=== PATIENT | male | born 1940 | race African-American/Black ===

== ENCOUNTER 2019-06-02 11:44 | Inpatient (IN) | payer MEDICAID, MEDICARE ==
[~2019-06-02] VITALS: Ht 185.4 cm; Wt 81.6 kg
[~2019-06-02 11:44] MED LIST: ATOR40TA70 PO; CITA10SO PO; CLOP75TA4 PO; CRAN400C PO; DOCU-150 PO; ERGO2000 PO; FAMO20TA8 PO; GABA-531 PO; INSU100I28 SQ; LISI40TA4 PO; MULT-1146 PO; POLY255P2 MT
[2019-06-02 12:53] LABS: BASOPHILS % 0.7 % (0.0-2.0); EOSINOPHILS % 4.3 % (0.0-5.0); HEMOGLOBIN. 12.7 g/dL (14.0-18.0); LYMPHOCYTES % 17.5 % (20.0-50.0); MEAN CORPUSCULAR HEMOGLOBIN 27.8 pg (28.0-32.0); MEAN CORPUSCULAR VOLUME 85.2 fL (80.0-94.0); MEAN PLATELET VOLUME 7.5 fl (7.4-10.4); MONOCYTES % 11.1 % (2.0-8.0); NEUTROPHILS % 66.4 % (40.0-76.0); PLATELET 388 x1000/uL (130-400); RED BLOOD CELL COUNT 4.58 mill/uL (4.7-6.1); RED CELL DISTRIBUTION WIDTH 13.6 % (11.6-14.6)
[2019-06-02 12:59] LABS: CHLORIDE 107 mEq/L (98-107)
[2019-06-02 13:00] LABS: INR 1.1; PROTHROMBIN TIME 10.9 sec (9.6-11.0)
[2019-06-02] MEDS ORDERED: SODIUM CHLORIDE 0.9% 500 ML IV ONE (13:38)
[2019-06-02 22:19] VITALS: BP 147/72
[2019-06-02] MEDS ORDERED: ONDANSETRON HCL 4MG/2ML INJ IV PRN (22:45)
[2019-06-02] MEDS ORDERED: CLONIDINE 0.1MG TABLET PO PRN (22:45)
[2019-06-02] MEDS ORDERED: ACETAMINOPHEN 325MG TABLET PO PRN (22:45)
[2019-06-02] MEDS ORDERED: ACETAMINOPHEN 650MG/20.3ML UDC GT PRN (22:45)
[2019-06-03] VITALS (7 sets, daily range): BP systolic 110–175; BP diastolic 61–78
[2019-06-03] MEDS: HYDROCODONE/ACETAMINOPHEN 5/325MG TABLET PO PRN ×2 (03:16→20:09)
[2019-06-03 06:54] LABS: CREATINE KINASE 102 IU/L (39-308)
[2019-06-03 06:56] LABS: CREATINE KINASE MB FRACTION < 1.0 ng/mL (0.5-3.6)
[2019-06-03] MEDS: ASPIRIN 81MG EC TABLET PO SCH (09:01)
[2019-06-03] MEDS: ENOXAPARIN 40MG/0.4ML SYR SUBCUT SCH (09:01)
[2019-06-03] MEDS: FERROUS SULFATE 325MG TABLET PO SCH (09:01)
[2019-06-03] MEDS: THIAMINE HCL 100MG TABLET PO SCH (09:01)
[2019-06-03 16:07] LABS: CREATINE KINASE 88 IU/L (39-308)
[2019-06-03 16:08] LABS: CREATINE KINASE MB FRACTION < 1.0 ng/mL (0.5-3.6)
[2019-06-03] MEDS: SODIUM CHLORIDE 0.9% 1,000 ML IV SCH ×2 (17:57→17:58)
[2019-06-03] MEDS: AMLODIPINE 5MG TABLET PO SCH (23:30)
[2019-06-04] VITALS: BP 94/52
[2019-06-04] MEDS ORDERED: CEFTRIAXONE 1 G PREMIX 50 ML IV NR
[2019-06-04 00:53] VITALS: BP 100/58
[2019-06-04 02:42] LABS: CLARITY URINE TURBID (CLEAR); COLOR URINE YELLOW (YELLOW); KETONES URINE TRACE (NEGATIVE); LEUKOCYTE ESTERASE URINE 3+ (NEGATIVE); NITRITE URINE NEGATIVE (NEGATIVE); OCCULT BLOOD URINE 2+ (NEGATIVE); PROTEIN URINE 1+ (NEGATIVE); SPECIFIC GRAVITY URINE 1.019 (1.005-1.030); UROBILINOGEN URINE 0.2 E.U./dL (0.2-1.0)
[2019-06-04 04:00] VITALS: BP 125/63
[2019-06-04 08:00] VITALS: BP 122/69
[2019-06-04] MEDS: ENOXAPARIN 40MG/0.4ML SYR SUBCUT SCH (09:27)
[2019-06-04] MEDS: ASPIRIN 81MG EC TABLET PO SCH (09:27)
[2019-06-04] MEDS: FERROUS SULFATE 325MG TABLET PO SCH (09:27)
[2019-06-04] MEDS: THIAMINE HCL 100MG TABLET PO SCH (09:27)
[2019-06-04] MEDS: AMLODIPINE 5MG TABLET PO SCH (09:27)
[2019-06-04] MEDS: SODIUM CHLORIDE 0.9% 1,000 ML IV SCH (09:28)
[2019-06-04] MEDS ORDERED: IPRATROPIUM/ALBUTEROL 0.5-3(2.5)MG/3ML NEB HHN PRN (12:45)
[2019-06-04 20:00] VITALS: BP 155/71
[2019-06-04] MEDS: CEFTRIAXONE 1 G PREMIX 50 ML IV SCH (20:07)
[2019-06-05] VITALS: BP 149/78
[2019-06-05 04:00] VITALS: BP 153/75
[2019-06-05 07:51] LABS: BASOPHILS % 0.6 % (0.0-2.0); EOSINOPHILS % 2.9 % (0.0-5.0); HEMATOCRIT. 37.6 % (42.0-52.0); HEMOGLOBIN. 12.4 g/dL (14.0-18.0); LYMPHOCYTES % 14.9 % (20.0-50.0); MEAN CORPUSCULAR VOLUME 85.3 fL (80.0-94.0); MEAN PLATELET VOLUME 7.5 fl (7.4-10.4); MONOCYTES % 9.6 % (2.0-8.0); PLATELET 410 x1000/uL (130-400); RED BLOOD CELL COUNT 4.41 mill/uL (4.7-6.1); RED CELL DISTRIBUTION WIDTH 13.7 % (11.6-14.6)
[2019-06-05 08:00] VITALS: BP 153/78
[2019-06-05 08:30] LABS: CHLORIDE 109 mEq/L (98-107)
[2019-06-05 08:44] LABS: PHOSPHORUS 2.3 mg/dL (2.5-4.9)
[2019-06-05] MEDS: FERROUS SULFATE 325MG TABLET PO SCH (09:31)
[2019-06-05] MEDS: THIAMINE HCL 100MG TABLET PO SCH (09:31)
[2019-06-05] MEDS: ENOXAPARIN 40MG/0.4ML SYR SUBCUT SCH (09:32)
[2019-06-05] MEDS: AMLODIPINE 5MG TABLET PO SCH (09:37)
[2019-06-05] MEDS: ASPIRIN 81MG EC TABLET PO SCH (09:53)
[2019-06-05 12:00] VITALS: BP 129/74
[2019-06-05 16:00] VITALS: BP 135/67
[2019-06-05] MEDS: SODIUM CHLORIDE 0.9% 1,000 ML IV SCH ×2 (17:18→19:49)
[2019-06-05 20:00] VITALS: BP 163/83
[2019-06-05] MEDS: CEFTRIAXONE 1 G PREMIX 50 ML IV SCH (20:36)
[2019-06-05] MEDS: BLOOD SUGAR DIAGNOSTIC STRIP TEST SCH (22:23)
[2019-06-05] MEDS: INSULIN LISPRO 100 UNITS/ML SUBCUT SCH (22:30)
[2019-06-05] MEDS ORDERED: DEXTROSE 50% WATER 50ML SYRINGE IV PRN (22:30)
[2019-06-06] VITALS: BP 153/80
[2019-06-06 04:00] VITALS: BP 144/68
[2019-06-06] MEDS: BLOOD SUGAR DIAGNOSTIC STRIP TEST SCH ×4 (05:39→21:30)
[2019-06-06] MEDS: INSULIN LISPRO 100 UNITS/ML SUBCUT SCH ×4 (05:57→21:30)
[2019-06-06 08:05] VITALS: BP 150/79
[2019-06-06] MEDS: THIAMINE HCL 100MG TABLET PO SCH (08:47)
[2019-06-06] MEDS: FERROUS SULFATE 325MG TABLET PO SCH (08:47)
[2019-06-06] MEDS: ASPIRIN 81MG EC TABLET PO SCH (08:47)
[2019-06-06] MEDS: AMLODIPINE 5MG TABLET PO SCH (08:47)
[2019-06-06] MEDS: ENOXAPARIN 40MG/0.4ML SYR SUBCUT SCH (08:47)
[2019-06-06] MEDS: SODIUM CHLORIDE 0.9% 1,000 ML IV SCH (11:45)
[2019-06-06 12:00] VITALS: BP 125/65
[2019-06-06 16:00] VITALS: BP 138/72
[2019-06-06 20:00] VITALS: BP 130/62
[2019-06-06] MEDS: CEFTRIAXONE 1 G PREMIX 50 ML IV SCH (21:10)
[2019-06-07] VITALS: BP 129/61
[2019-06-07 04:00] VITALS: BP 129/57
[2019-06-07] MEDS: SODIUM CHLORIDE 0.9% 1,000 ML IV SCH (05:32)
[2019-06-07] MEDS: INSULIN LISPRO 100 UNITS/ML SUBCUT SCH ×2 (06:22→12:40)
[2019-06-07] MEDS: BLOOD SUGAR DIAGNOSTIC STRIP TEST SCH ×2 (06:22→12:10)
[2019-06-07] MEDS: ENOXAPARIN 40MG/0.4ML SYR SUBCUT SCH (09:08)
[2019-06-07] MEDS: FERROUS SULFATE 325MG TABLET PO SCH (09:08)
[2019-06-07] MEDS: THIAMINE HCL 100MG TABLET PO SCH (09:08)
[2019-06-07] MEDS: AMLODIPINE 5MG TABLET PO SCH (09:08)
[2019-06-07] MEDS: ASPIRIN 81MG EC TABLET PO SCH (09:08)
[2019-06-07 11:48] VITALS: BP 143/72
[2019-06-07 15:01] VITALS: BP 143/72
[2019-06-07 17:19] LABS: CHLORIDE 107 mEq/L (98-107)
== END 2019-06-07 17:55 | DRG 871 ==
LOC: ER 11:44 → 8WST 15:10 → ENRESERV 20:51
PROVIDERS: ADMIT Internal Medicine Nephrology; ATTEND Internal Medicine Nephrology
DX: A41.9 Sepsis, unspecified organism (principal); N17.0 Acute kidney failure with tubular necrosis; E44.0 Moderate protein-calorie malnutrition; I69.354 Hemiplegia and hemiparesis following cerebral infarction affecting left non-dominant side; N39.0 Urinary tract infection, site not specified; I12.9 Hypertensive chronic kidney disease with stage 1 through stage 4 chronic kidney disease, or unspecified chronic kidney disease; E86.0 Dehydration; E11.22 Type 2 diabetes mellitus with diabetic chronic kidney disease; D63.8 Anemia in other chronic diseases classified elsewhere; E78.5 Hyperlipidemia, unspecified; I25.10 Atherosclerotic heart disease of native coronary artery without angina pectoris; R74.0 Nonspecific elevation of levels of transaminase and lactic acid dehydrogenase [LDH]; N18.9 Chronic kidney disease, unspecified; R62.7 Adult failure to thrive; Z87.891 Personal history of nicotine dependence; Z99.3 Dependence on wheelchair; Z68.23 Body mass index [BMI] 23.0-23.9, adult; Z79.4 Long term (current) use of insulin; Z79.899 Other long term (current) drug therapy
CPT/HCPCS: 36415; 71045; 80048; 82550; 82553; 82962; 83605; 83735; 84100; 84134; 84145; 84484; 93005; 93306; 96360; 97110; 97162; 97166; 97530; 99285; A6261; J0696; J1650; J1815; J7030; J7050

== ENCOUNTER 2020-02-18 14:17 | Inpatient (IN) | payer MEDICARE, MEDICAID ==
[~2020-02-18] VITALS: Ht 182.9 cm; Wt 70.9 kg
[2020-02-18] MEDS ORDERED: SODIUM CHLORIDE 0.9% 1,000 ML IV ONE ×2 (14:50→14:57)
[2020-02-18] MEDS ORDERED: PIPERACILLIN/TAZ 3.375G PREMIX 50 ML IV ONE (15:00)
[2020-02-18] MEDS ORDERED: VANCOMYCIN 1 G PREMIX 200 ML IV ONE ×2 (15:00→15:15)
[2020-02-18 16:39] LABS: INR 1.1; PROTHROMBIN TIME 11.4 sec (9.6-11.0)
[2020-02-18 16:46] LABS: HEMOGLOBIN. 14.7 g/dL (14.0-18.0); MEAN CORPUSCULAR HEMOGLOBIN 27.7 pg (28.0-32.0); MEAN CORPUSCULAR VOLUME 82.9 fL (80.0-94.0); MEAN PLATELET VOLUME 8.6 fl (7.4-10.4); PLATELET 290 x1000/uL (130-400); RED BLOOD CELL COUNT 5.31 mill/uL (4.7-6.1); RED CELL DISTRIBUTION WIDTH 13.5 % (11.6-14.6)
[2020-02-18 17:03] LABS: CLARITY URINE CLOUDY (CLEAR); COLOR URINE DK YELLOW (YELLOW); KETONES URINE NEGATIVE (NEGATIVE); LEUKOCYTE ESTERASE URINE NEGATIVE (NEGATIVE); NITRITE URINE NEGATIVE (NEGATIVE); OCCULT BLOOD URINE 1+ (NEGATIVE); PH URINE 5.5 (4.5-8.0); PROTEIN URINE 3+ (NEGATIVE); SPECIFIC GRAVITY URINE 1.025 (1.005-1.030); UROBILINOGEN URINE 0.2 E.U./dL (0.2-1.0)
[2020-02-18 17:22] LABS: PLATELET ESTIMATE NORMAL
[2020-02-18] MEDS ORDERED: HYDRALAZINE 20MG/ML VIAL IV ONE (18:00)
[2020-02-18 22:30] VITALS: BP 158/77
[2020-02-18 22:32] LABS: CHLORIDE 104 mEq/L (98-107)
[2020-02-18] MEDS ORDERED: LISINOPRIL 40MG TABLET PO SCH (23:15)
[2020-02-18] MEDS ORDERED: LORAZEPAM 2MG/ML CPJ IV PRN (23:15)
[2020-02-18] MEDS ORDERED: AZITHROMYCIN 500 MG in DEXT 5% WATER 250 ML IV SCH (23:15)
[2020-02-18] MEDS ORDERED: MORPHINE SULFATE 2 MG/ML CPJ (NOT FOR IM USE) IV PRN (23:15)
[2020-02-18] MEDS ORDERED: HYDROCODONE/ACETAMINOPHEN 5/325MG TABLET PO PRN (23:15)
[2020-02-19] VITALS: BP_SYST 156; BP_SYST 158; BP_DIAS 70; BP_DIAS 77
[2020-02-19] MEDS ORDERED: NON FORMULARY PATIENT HOME MED XX SCH (01:00)
[2020-02-19] MEDS ORDERED: TOPUD PO (01:02)
[2020-02-19] MEDS ORDERED: HYDR-3281 PO (01:02)
[2020-02-19] MEDS ORDERED: AMLO5TAB88 PO (01:02)
[2020-02-19] MEDS ORDERED: ASPI-1497 PO (01:02)
[2020-02-19] MEDS ORDERED: DEXTROSE 50% WATER 50ML SYRINGE IV PRN (01:15)
[2020-02-19] MEDS: ACETAMINOPHEN 325MG TABLET PO PRN ×2 (01:17→09:13)
[2020-02-19] MEDS: AZITHROMYCIN 500 MG in DEXT 5% WATER 250 ML IV SCH (01:39)
[2020-02-19] MEDS: SODIUM CHLORIDE 0.9% 1,000 ML IV SCH ×2 (01:39→16:17)
[2020-02-19 04:00] VITALS: BP 134/78
[2020-02-19] MEDS: GABAPENTIN 300MG CAPSULE PO SCH ×3 (06:23→21:31)
[2020-02-19] MEDS: INSULIN LISPRO 100 UNITS/ML SUBCUT SCH ×4 (06:24→21:46)
[2020-02-19] MEDS: BLOOD SUGAR DIAGNOSTIC STRIP TEST SCH ×4 (06:24→21:31)
[2020-02-19 06:32] LABS: HEMATOCRIT. 43.6 % (42.0-52.0); HEMOGLOBIN. 14.5 g/dL (14.0-18.0); MEAN CORPUSCULAR HEMOGLOBIN 27.8 pg (28.0-32.0); MEAN CORPUSCULAR VOLUME 83.5 fL (80.0-94.0); MEAN PLATELET VOLUME 8.3 fl (7.4-10.4); PLATELET 226 x1000/uL (130-400); RED BLOOD CELL COUNT 5.22 mill/uL (4.7-6.1); RED CELL DISTRIBUTION WIDTH 13.6 % (11.6-14.6)
[2020-02-19 07:02] LABS: CHLORIDE 102 mEq/L (98-107)
[2020-02-19 07:17] LABS: PHOSPHORUS 2.7 mg/dL (2.5-4.9)
[2020-02-19 08:00] VITALS: BP 163/79
[2020-02-19] MEDS: THIAMINE HCL 100MG TABLET PO SCH (09:12)
[2020-02-19] MEDS: CLOPIDOGREL 75MG TABLET PO SCH (09:12)
[2020-02-19] MEDS: LISINOPRIL 10MG TABLET PO SCH (09:12)
[2020-02-19] MEDS: FAMOTIDINE 20MG TABLET PO SCH ×2 (09:13→21:31)
[2020-02-19] MEDS: DOCUSATE SODIUM 100MG CAPSULE PO SCH ×2 (09:13→16:38)
[2020-02-19 12:00] VITALS: BP 108/66
[2020-02-19] MEDS ORDERED: ACETAMINOPHEN 650MG/20.3ML UDC PO SCH (12:45)
[2020-02-19 16:00] VITALS: BP 123/66
[2020-02-19] MEDS ORDERED: GUAIFENESIN-DM 200MG-20MG/10ML UDC PO PRN (19:15)
[2020-02-19 20:00] VITALS: BP_SYST 129; BP_SYST 82; BP_DIAS 82
[2020-02-19] MEDS ORDERED: CEFTRIAXONE 1 G PREMIX 50 ML IV SCH (20:00)
[2020-02-19] MEDS: ATORVASTATIN CALCIUM 40MG TABLET PO SCH (21:31)
[2020-02-20] VITALS: BP 153/86
[2020-02-20] MEDS: AZITHROMYCIN 500 MG in DEXT 5% WATER 250 ML IV SCH (01:21)
[2020-02-20 04:00] VITALS: BP 136/85
[2020-02-20] MEDS: GABAPENTIN 300MG CAPSULE PO SCH ×3 (05:24→22:00)
[2020-02-20] MEDS: BLOOD SUGAR DIAGNOSTIC STRIP TEST SCH ×4 (06:38→21:00)
[2020-02-20] MEDS: INSULIN LISPRO 100 UNITS/ML SUBCUT SCH ×4 (06:42→21:00)
[2020-02-20 08:00] VITALS: BP 156/77
[2020-02-20 08:22] LABS: COVID-19 PCR RNA DETECTED
[2020-02-20 08:23] LABS: COVID-19 PCR RNA DETECTED
[2020-02-20 09:01] LABS: ATYPICAL LYMPHOCYTES 1; PLATELET ESTIMATE NORMAL
[2020-02-20] MEDS: ACETAMINOPHEN 650MG/20.3ML UDC PO PRN ×2 (09:13→17:26)
[2020-02-20] MEDS: THIAMINE HCL 100MG TABLET PO SCH (09:13)
[2020-02-20] MEDS: DOCUSATE SODIUM 100MG CAPSULE PO SCH ×2 (09:13→17:26)
[2020-02-20] MEDS: CLOPIDOGREL 75MG TABLET PO SCH (09:13)
[2020-02-20] MEDS: LISINOPRIL 10MG TABLET PO SCH (09:14)
[2020-02-20] MEDS: FAMOTIDINE 20MG TABLET PO SCH ×2 (09:14→22:00)
[2020-02-20] MEDS: SODIUM CHLORIDE 0.9% 1,000 ML IV SCH (09:16)
[2020-02-20 12:00] VITALS: BP 127/64
[2020-02-20] MEDS: HYDROXYCHLOROQUINE SULFATE 200MG TABLET PO SCH ×2 (15:00→22:00)
[2020-02-20] MEDS: ZINC SULFATE 220 MG ( 50 ) CAPSULE PO SCH (15:00)
[2020-02-20 16:00] VITALS: BP 156/77
[2020-02-20 20:00] VITALS: BP 143/86
[2020-02-20] MEDS: ATORVASTATIN CALCIUM 40MG TABLET PO SCH (22:00)
[2020-02-20] MEDS: ASCORBIC ACID 500 MG TABLET PO SCH (22:00)
[2020-02-21] VITALS: BP 148/70
[2020-02-21] MEDS: AZITHROMYCIN 500 MG in DEXT 5% WATER 250 ML IV SCH (01:10)
[2020-02-21 04:00] VITALS: BP 143/71
[2020-02-21] MEDS: BLOOD SUGAR DIAGNOSTIC STRIP TEST SCH ×4 (06:17→21:15)
[2020-02-21] MEDS: GABAPENTIN 300MG CAPSULE PO SCH ×3 (06:17→20:51)
[2020-02-21] MEDS: ACETAMINOPHEN 650MG/20.3ML UDC PO PRN ×3 (06:18→21:55)
[2020-02-21] MEDS: INSULIN LISPRO 100 UNITS/ML SUBCUT SCH ×4 (06:18→21:00)
[2020-02-21 08:30] VITALS: BP 120/65
[2020-02-21] MEDS: ZINC SULFATE 220 MG ( 50 ) CAPSULE PO SCH (08:43)
[2020-02-21] MEDS: CLOPIDOGREL 75MG TABLET PO SCH (08:43)
[2020-02-21] MEDS: HYDROXYCHLOROQUINE SULFATE 200MG TABLET PO SCH ×2 (08:43→20:50)
[2020-02-21] MEDS: THIAMINE HCL 100MG TABLET PO SCH (08:44)
[2020-02-21] MEDS: DOCUSATE SODIUM 100MG CAPSULE PO SCH ×2 (08:46→16:10)
[2020-02-21] MEDS: ASCORBIC ACID 500 MG TABLET PO SCH ×2 (08:46→20:50)
[2020-02-21] MEDS: FAMOTIDINE 20MG TABLET PO SCH ×2 (08:46→20:51)
[2020-02-21] MEDS: LISINOPRIL 10MG TABLET PO SCH (08:46)
[2020-02-21 12:00] VITALS: BP 160/75
[2020-02-21 16:04] VITALS: BP 132/69
[2020-02-21 20:00] VITALS: BP 154/71
[2020-02-21] MEDS: ATORVASTATIN CALCIUM 40MG TABLET PO SCH (20:50)
[2020-02-22] VITALS: BP 149/78
[2020-02-22] MEDS: AZITHROMYCIN 500 MG in DEXT 5% WATER 250 ML IV SCH (01:13)
[2020-02-22 04:00] VITALS: BP 143/80
[2020-02-22] MEDS: BLOOD SUGAR DIAGNOSTIC STRIP TEST SCH ×4 (06:52→21:34)
[2020-02-22] MEDS: GABAPENTIN 300MG CAPSULE PO SCH ×3 (07:00→22:03)
[2020-02-22] MEDS: INSULIN LISPRO 100 UNITS/ML SUBCUT SCH ×4 (07:09→22:04)
[2020-02-22 08:00] VITALS: BP 134/75
[2020-02-22] MEDS: HYDROXYCHLOROQUINE SULFATE 200MG TABLET PO SCH ×2 (09:14→22:00)
[2020-02-22] MEDS: ASCORBIC ACID 500 MG TABLET PO SCH ×2 (09:14→22:01)
[2020-02-22] MEDS: ZINC SULFATE 220 MG ( 50 ) CAPSULE PO SCH (09:14)
[2020-02-22] MEDS: DOCUSATE SODIUM 100MG CAPSULE PO SCH ×2 (09:14→17:00)
[2020-02-22] MEDS: FAMOTIDINE 20MG TABLET PO SCH ×2 (09:14→22:00)
[2020-02-22] MEDS: ACETAMINOPHEN 650MG/20.3ML UDC PO PRN ×2 (09:14→17:37)
[2020-02-22] MEDS: CLOPIDOGREL 75MG TABLET PO SCH (09:14)
[2020-02-22] MEDS: LISINOPRIL 10MG TABLET PO SCH (09:14)
[2020-02-22] MEDS: THIAMINE HCL 100MG TABLET PO SCH (09:14)
[2020-02-22 12:00] VITALS: BP 145/77
[2020-02-22 16:00] VITALS: BP 118/69
[2020-02-22 20:00] VITALS: BP 147/66
[2020-02-22] MEDS: ATORVASTATIN CALCIUM 40MG TABLET PO SCH (22:01)
[2020-02-22 23:48] LABS: CHLORIDE 103 mEq/L (98-107)
[2020-02-22 23:51] LABS: HEMATOCRIT. 42.5 % (42.0-52.0); HEMOGLOBIN. 14.3 g/dL (14.0-18.0); MEAN CORPUSCULAR HEMOGLOBIN 27.8 pg (28.0-32.0); MEAN CORPUSCULAR VOLUME 82.6 fL (80.0-94.0); MEAN PLATELET VOLUME 7.8 fl (7.4-10.4); PLATELET 174 x1000/uL (130-400); RED BLOOD CELL COUNT 5.15 mill/uL (4.7-6.1); RED CELL DISTRIBUTION WIDTH 13.5 % (11.6-14.6)
[2020-02-23] VITALS: BP 141/68
[2020-02-23 00:38] LABS: PLATELET ESTIMATE NORMAL
[2020-02-23] MEDS: AZITHROMYCIN 500 MG in DEXT 5% WATER 250 ML IV SCH (00:59)
[2020-02-23 04:00] VITALS: BP 157/89
[2020-02-23] MEDS: GABAPENTIN 300MG CAPSULE PO SCH ×3 (05:34→21:47)
[2020-02-23] MEDS: ACETAMINOPHEN 650MG/20.3ML UDC PO PRN ×2 (05:35→21:47)
[2020-02-23] MEDS: BLOOD SUGAR DIAGNOSTIC STRIP TEST SCH ×4 (05:45→21:48)
[2020-02-23] MEDS: INSULIN LISPRO 100 UNITS/ML SUBCUT SCH ×4 (06:33→21:57)
[2020-02-23 08:00] VITALS: BP 145/79
[2020-02-23] MEDS: FAMOTIDINE 20MG TABLET PO SCH ×2 (09:20→21:47)
[2020-02-23] MEDS: HYDROXYCHLOROQUINE SULFATE 200MG TABLET PO SCH ×2 (09:20→21:47)
[2020-02-23] MEDS: ZINC SULFATE 220 MG ( 50 ) CAPSULE PO SCH (09:20)
[2020-02-23] MEDS: THIAMINE HCL 100MG TABLET PO SCH (09:20)
[2020-02-23] MEDS: DOCUSATE SODIUM 100MG CAPSULE PO SCH ×2 (09:20→17:00)
[2020-02-23] MEDS: ASCORBIC ACID 500 MG TABLET PO SCH ×2 (09:20→21:47)
[2020-02-23] MEDS: LISINOPRIL 10MG TABLET PO SCH (09:21)
[2020-02-23] MEDS: CLOPIDOGREL 75MG TABLET PO SCH (09:21)
[2020-02-23 12:00] VITALS: BP 155/71
[2020-02-23] MEDS: ENOXAPARIN 40MG/0.4ML SYR SUBCUT SCH (15:36)
[2020-02-23 16:00] VITALS: BP 149/78
[2020-02-23 20:00] VITALS: BP 147/81
[2020-02-23] MEDS: ATORVASTATIN CALCIUM 40MG TABLET PO SCH (21:47)
[2020-02-24] VITALS: BP 126/67
[2020-02-24 04:00] VITALS: BP 142/70
[2020-02-24] MEDS: BLOOD SUGAR DIAGNOSTIC STRIP TEST SCH ×4 (06:27→21:00)
[2020-02-24] MEDS: GABAPENTIN 300MG CAPSULE PO SCH ×3 (06:41→21:35)
[2020-02-24] MEDS: INSULIN LISPRO 100 UNITS/ML SUBCUT SCH ×3 (06:44→17:10)
[2020-02-24 08:00] VITALS: BP 131/77
[2020-02-24] MEDS: LISINOPRIL 10MG TABLET PO SCH (08:50)
[2020-02-24] MEDS: THIAMINE HCL 100MG TABLET PO SCH (08:50)
[2020-02-24] MEDS: ASCORBIC ACID 500 MG TABLET PO SCH ×2 (08:50→21:49)
[2020-02-24] MEDS: FAMOTIDINE 20MG TABLET PO SCH ×2 (08:50→21:35)
[2020-02-24] MEDS: DOCUSATE SODIUM 100MG CAPSULE PO SCH ×2 (08:50→17:14)
[2020-02-24] MEDS: HYDROXYCHLOROQUINE SULFATE 200MG TABLET PO SCH ×2 (08:50→21:35)
[2020-02-24] MEDS: ZINC SULFATE 220 MG ( 50 ) CAPSULE PO SCH (08:50)
[2020-02-24] MEDS: CLOPIDOGREL 75MG TABLET PO SCH (08:57)
[2020-02-24 12:00] VITALS: BP 129/74
[2020-02-24] MEDS: ENOXAPARIN 40MG/0.4ML SYR SUBCUT SCH (13:13)
[2020-02-24] MEDS: ACETAMINOPHEN 650MG/20.3ML UDC PO PRN (17:14)
[2020-02-24 20:00] VITALS: BP 126/69
[2020-02-24] MEDS: ATORVASTATIN CALCIUM 40MG TABLET PO SCH (21:35)
[2020-02-25] VITALS: BP 137/75
[2020-02-25] MEDS: INSULIN LISPRO 100 UNITS/ML SUBCUT SCH ×5 (01:13→21:42)
[2020-02-25] MEDS: ACETAMINOPHEN 650MG/20.3ML UDC PO PRN (01:43)
[2020-02-25 04:00] VITALS: BP 134/72
[2020-02-25] MEDS: GABAPENTIN 300MG CAPSULE PO SCH ×3 (05:58→21:32)
[2020-02-25] MEDS: BLOOD SUGAR DIAGNOSTIC STRIP TEST SCH ×4 (06:36→21:32)
[2020-02-25 08:00] VITALS: BP 116/65
[2020-02-25] MEDS ORDERED: FUROSEMIDE 40MG/4ML VIAL IVP NR (08:00)
[2020-02-25] MEDS: LISINOPRIL 10MG TABLET PO SCH (10:13)
[2020-02-25] MEDS: FAMOTIDINE 20MG TABLET PO SCH ×2 (10:13→21:32)
[2020-02-25] MEDS: ASCORBIC ACID 500 MG TABLET PO SCH ×2 (10:13→21:32)
[2020-02-25] MEDS: DOCUSATE SODIUM 100MG CAPSULE PO SCH ×2 (10:14→18:24)
[2020-02-25] MEDS: ZINC SULFATE 220 MG ( 50 ) CAPSULE PO SCH (10:14)
[2020-02-25] MEDS: CLOPIDOGREL 75MG TABLET PO SCH (10:14)
[2020-02-25] MEDS: THIAMINE HCL 100MG TABLET PO SCH (10:14)
[2020-02-25 12:00] VITALS: BP 149/75
[2020-02-25] MEDS: ENOXAPARIN 40MG/0.4ML SYR SUBCUT SCH (13:55)
[2020-02-25 16:00] VITALS: BP 135/65
[2020-02-25] MEDS ORDERED: LACTULOSE 20G/30ML UDC PO PRN (18:45)
[2020-02-25 20:00] VITALS: BP 128/71
[2020-02-25] MEDS: ATORVASTATIN CALCIUM 40MG TABLET PO SCH (21:32)
[2020-02-26] VITALS: BP 135/70
[2020-02-26 04:00] VITALS: BP 135/81
[2020-02-26] MEDS: BLOOD SUGAR DIAGNOSTIC STRIP TEST SCH ×4 (06:32→21:37)
[2020-02-26] MEDS: GABAPENTIN 300MG CAPSULE PO SCH ×3 (06:32→21:35)
[2020-02-26] MEDS: INSULIN LISPRO 100 UNITS/ML SUBCUT SCH ×4 (06:33→21:36)
[2020-02-26 08:05] VITALS: BP 137/74
[2020-02-26] MEDS: FAMOTIDINE 20MG TABLET PO SCH ×2 (09:34→21:35)
[2020-02-26] MEDS: ASCORBIC ACID 500 MG TABLET PO SCH ×2 (09:35→21:35)
[2020-02-26] MEDS: DOCUSATE SODIUM 100MG CAPSULE PO SCH ×2 (09:35→17:00)
[2020-02-26] MEDS: ZINC SULFATE 220 MG ( 50 ) CAPSULE PO SCH (09:35)
[2020-02-26] MEDS: CLOPIDOGREL 75MG TABLET PO SCH (09:35)
[2020-02-26] MEDS: LISINOPRIL 10MG TABLET PO SCH (09:36)
[2020-02-26] MEDS: ACETAMINOPHEN 650MG/20.3ML UDC PO PRN (10:20)
[2020-02-26 12:01] VITALS: BP 122/74
[2020-02-26] MEDS: ENOXAPARIN 40MG/0.4ML SYR SUBCUT SCH (13:22)
[2020-02-26] MEDS: THIAMINE HCL 100MG TABLET PO SCH (13:22)
[2020-02-26 16:02] VITALS: BP 109/69
[2020-02-26 20:00] VITALS: BP 134/80
[2020-02-26] MEDS: ATORVASTATIN CALCIUM 40MG TABLET PO SCH (21:35)
[2020-02-26] MEDS: INSULIN GLARGINE UD 100 UNITS/ML SYR SUBCUT SCH (21:37)
[2020-02-27] VITALS (7 sets, daily range): BP systolic 96–128; BP diastolic 61–81
[2020-02-27] MEDS: ACETAMINOPHEN 650MG/20.3ML UDC PO PRN (00:42)
[2020-02-27 05:51] LABS: HEMATOCRIT. 46.6 % (42.0-52.0); HEMOGLOBIN. 15.6 g/dL (14.0-18.0); MEAN CORPUSCULAR HEMOGLOBIN 27.9 pg (28.0-32.0); MEAN CORPUSCULAR VOLUME 83.5 fL (80.0-94.0); MEAN PLATELET VOLUME 8.5 fl (7.4-10.4); PLATELET 305 x1000/uL (130-400); RED BLOOD CELL COUNT 5.58 mill/uL (4.7-6.1); RED CELL DISTRIBUTION WIDTH 14.2 % (11.6-14.6)
[2020-02-27 06:03] LABS: CHLORIDE 106 mEq/L (98-107)
[2020-02-27] MEDS: GABAPENTIN 300MG CAPSULE PO SCH ×3 (06:05→21:36)
[2020-02-27 06:08] LABS: PHOSPHORUS 3.7 mg/dL (2.5-4.9)
[2020-02-27] MEDS: BLOOD SUGAR DIAGNOSTIC STRIP TEST SCH ×4 (06:40→21:28)
[2020-02-27] MEDS: DOCUSATE SODIUM 100MG CAPSULE PO SCH ×2 (09:00→17:24)
[2020-02-27] MEDS: LISINOPRIL 10MG TABLET PO SCH (09:00)
[2020-02-27] MEDS: CLOPIDOGREL 75MG TABLET PO SCH (09:34)
[2020-02-27] MEDS: THIAMINE HCL 100MG TABLET PO SCH (09:34)
[2020-02-27] MEDS: ZINC SULFATE 220 MG ( 50 ) CAPSULE PO SCH (09:34)
[2020-02-27] MEDS: ASCORBIC ACID 500 MG TABLET PO SCH ×2 (09:34→21:36)
[2020-02-27] MEDS: FAMOTIDINE 20MG TABLET PO SCH ×2 (09:34→21:36)
[2020-02-27] MEDS: INSULIN GLARGINE UD 100 UNITS/ML SYR SUBCUT SCH ×2 (09:35→21:37)
[2020-02-27] MEDS: INSULIN LISPRO 100 UNITS/ML SUBCUT SCH ×4 (09:35→21:37)
[2020-02-27 12:50] LABS: PLATELET ESTIMATE NORMAL
[2020-02-27] MEDS: ENOXAPARIN 40MG/0.4ML SYR SUBCUT SCH (13:22)
[2020-02-27] MEDS: ATORVASTATIN CALCIUM 40MG TABLET PO SCH (21:36)
[2020-02-28] VITALS (8 sets, daily range): BP systolic 107–161; BP diastolic 66–81
[2020-02-28] MEDS: GABAPENTIN 300MG CAPSULE PO SCH ×3 (05:00→21:43)
[2020-02-28] MEDS: BLOOD SUGAR DIAGNOSTIC STRIP TEST SCH ×4 (06:14→21:43)
[2020-02-28] MEDS: INSULIN LISPRO 100 UNITS/ML SUBCUT SCH ×4 (06:24→21:42)
[2020-02-28] MEDS: ASCORBIC ACID 500 MG TABLET PO SCH ×2 (09:00→21:43)
[2020-02-28] MEDS: THIAMINE HCL 100MG TABLET PO SCH (09:00)
[2020-02-28] MEDS: DOCUSATE SODIUM 100MG CAPSULE PO SCH ×2 (10:20→16:56)
[2020-02-28] MEDS: ZINC SULFATE 220 MG ( 50 ) CAPSULE PO SCH (10:20)
[2020-02-28] MEDS: CLOPIDOGREL 75MG TABLET PO SCH (10:20)
[2020-02-28] MEDS: FAMOTIDINE 20MG TABLET PO SCH ×2 (10:20→21:43)
[2020-02-28] MEDS: LISINOPRIL 10MG TABLET PO SCH (10:23)
[2020-02-28] MEDS: INSULIN GLARGINE UD 100 UNITS/ML SYR SUBCUT SCH ×2 (10:24→21:41)
[2020-02-28] MEDS: ENOXAPARIN 40MG/0.4ML SYR SUBCUT SCH (13:00)
[2020-02-28] MEDS: SODIUM CHLORIDE 0.45% 1,000 ML IV SCH (16:57)
[2020-02-28] MEDS: ATORVASTATIN CALCIUM 40MG TABLET PO SCH (21:43)
[2020-02-28] MEDS: ACETAMINOPHEN 650MG/20.3ML UDC PO PRN (21:43)
[2020-02-29] VITALS: BP 107/66
[2020-02-29 04:00] VITALS: BP 120/75
[2020-02-29] MEDS: GABAPENTIN 300MG CAPSULE PO SCH ×4 (05:01→22:00)
[2020-02-29] MEDS: BLOOD SUGAR DIAGNOSTIC STRIP TEST SCH ×4 (05:40→21:00)
[2020-02-29] MEDS: INSULIN LISPRO 100 UNITS/ML SUBCUT SCH ×4 (06:17→21:00)
[2020-02-29 08:00] VITALS: BP 118/73
[2020-02-29] MEDS: ZINC SULFATE 220 MG ( 50 ) CAPSULE PO SCH (09:43)
[2020-02-29] MEDS: DOCUSATE SODIUM 100MG CAPSULE PO SCH ×2 (09:43→17:45)
[2020-02-29] MEDS: FAMOTIDINE 20MG TABLET PO SCH ×3 (09:43→21:00)
[2020-02-29] MEDS: CLOPIDOGREL 75MG TABLET PO SCH (09:43)
[2020-02-29] MEDS: THIAMINE HCL 100MG TABLET PO SCH (09:43)
[2020-02-29] MEDS: LISINOPRIL 10MG TABLET PO SCH (09:44)
[2020-02-29] MEDS: INSULIN GLARGINE UD 100 UNITS/ML SYR SUBCUT SCH ×2 (09:52→22:47)
[2020-02-29] MEDS: ASCORBIC ACID 500 MG TABLET PO SCH ×3 (10:05→21:00)
[2020-02-29 12:00] VITALS: BP 110/67
[2020-02-29] MEDS: ENOXAPARIN 40MG/0.4ML SYR SUBCUT SCH (14:00)
[2020-02-29 16:00] VITALS: BP 103/51
[2020-02-29] MEDS: SODIUM CHLORIDE 0.45% 1,000 ML IV SCH (18:12)
[2020-02-29 20:00] VITALS: BP 110/56
[2020-02-29] MEDS: ATORVASTATIN CALCIUM 40MG TABLET PO SCH (21:00)
[2020-02-29] MEDS: ACETAMINOPHEN 650MG SUPP PR PRN (23:28)
[2020-03-01] VITALS: BP 115/50
[2020-03-01 04:00] VITALS: BP 109/58
[2020-03-01] MEDS: GABAPENTIN 300MG CAPSULE PO SCH ×4 (06:00→21:53)
[2020-03-01] MEDS: BLOOD SUGAR DIAGNOSTIC STRIP TEST SCH ×4 (06:40→21:00)
[2020-03-01] MEDS: INSULIN LISPRO 100 UNITS/ML SUBCUT SCH ×4 (07:10→21:00)
[2020-03-01 08:00] VITALS: BP 127/72
[2020-03-01] MEDS: FAMOTIDINE 20MG TABLET PO SCH ×2 (09:00→21:55)
[2020-03-01] MEDS: ASCORBIC ACID 500 MG TABLET PO SCH ×2 (10:28→21:53)
[2020-03-01] MEDS: ZINC SULFATE 220 MG ( 50 ) CAPSULE PO SCH (10:28)
[2020-03-01] MEDS: LISINOPRIL 10MG TABLET PO SCH (10:28)
[2020-03-01] MEDS: CLOPIDOGREL 75MG TABLET PO SCH (10:28)
[2020-03-01] MEDS: THIAMINE HCL 100MG TABLET PO SCH (10:28)
[2020-03-01] MEDS: DOCUSATE SODIUM 100MG CAPSULE PO SCH ×2 (10:29→16:25)
[2020-03-01] MEDS: SODIUM CHLORIDE 0.45% 1,000 ML IV SCH ×2 (10:34→22:35)
[2020-03-01 12:00] VITALS: BP 123/67
[2020-03-01] MEDS: INSULIN GLARGINE UD 100 UNITS/ML SYR SUBCUT SCH ×2 (12:13→22:30)
[2020-03-01] MEDS: ACETAMINOPHEN 650MG SUPP PR PRN (14:23)
[2020-03-01] MEDS: ENOXAPARIN 40MG/0.4ML SYR SUBCUT SCH (14:23)
[2020-03-01] MEDS: ACETAMINOPHEN 650MG/20.3ML UDC PO PRN (14:24)
[2020-03-01 15:24] LABS: BG BASE EXCESS -1.7 mmol/L (-2.0-2.0); BG CARBOXYHEMOGLOBIN 0.1 % (0.5-1.5); BG DEOXYHEMOGLOBIN 4.1 % (0.0-5.0); BG FRACTION INSPIRED OXYGEN 28; BG METHEMOGLOBIN 0.2 % (0.0-1.5); BG OXYGEN SATURATION 95.9 % (92.0-98.5); BG OXYHEMOGLOBIN 95.6 % (94.0-97.0); BG PCO2 34.5 mmHg (35.0-45.0); BG PH 7.423 (7.350-7.450); BG PO2 75.2 mmHg (75.0-100.0); BG SAMPLE SITE RIGHT RADIAL; BG TOTAL HEMOGLOBIN 14.5 g/dL (12.0-18.0); BG VENT MODE NASAL CANNULA
[2020-03-01 16:00] VITALS: BP 110/89
[2020-03-01 20:00] VITALS: BP 110/71
[2020-03-01] MEDS: ATORVASTATIN CALCIUM 40MG TABLET PO SCH (21:53)
[2020-03-02] VITALS: BP 115/75
[2020-03-02 04:00] VITALS: BP 99/51
[2020-03-02] MEDS: GABAPENTIN 300MG CAPSULE PO SCH ×2 (06:00→12:56)
[2020-03-02] MEDS: INSULIN LISPRO 100 UNITS/ML SUBCUT SCH ×3 (06:28→17:54)
[2020-03-02] MEDS: BLOOD SUGAR DIAGNOSTIC STRIP TEST SCH ×4 (06:28→21:00)
[2020-03-02 08:00] VITALS: BP 141/80
[2020-03-02] MEDS: CLOPIDOGREL 75MG TABLET PO SCH (10:05)
[2020-03-02] MEDS: ASCORBIC ACID 500 MG TABLET PO SCH ×3 (10:05→23:57)
[2020-03-02] MEDS: THIAMINE HCL 100MG TABLET PO SCH (10:06)
[2020-03-02] MEDS: DOCUSATE SODIUM 100MG CAPSULE PO SCH ×2 (10:06→17:00)
[2020-03-02] MEDS: ZINC SULFATE 220 MG ( 50 ) CAPSULE PO SCH (10:06)
[2020-03-02] MEDS: FAMOTIDINE 20MG TABLET PO SCH ×3 (10:09→23:57)
[2020-03-02] MEDS: LISINOPRIL 10MG TABLET PO SCH (10:09)
[2020-03-02] MEDS: INSULIN GLARGINE UD 100 UNITS/ML SYR SUBCUT SCH ×2 (10:12→23:09)
[2020-03-02 12:00] VITALS: BP 137/83
[2020-03-02] MEDS: ENOXAPARIN 40MG/0.4ML SYR SUBCUT SCH (12:56)
[2020-03-02] MEDS: ACETAMINOPHEN 650MG/20.3ML UDC PO PRN (12:56)
[2020-03-02] MEDS: ACETAMINOPHEN 650MG SUPP PR PRN (13:06)
[2020-03-02 16:00] VITALS: BP 132/75
[2020-03-02] MEDS: PIPERACILLIN/TAZOBACTAM 3.375 G in DEXT 5% WATER 100 ML IV SCH (17:53)
[2020-03-02 20:00] VITALS: BP 131/84
[2020-03-02] MEDS: ATORVASTATIN CALCIUM 40MG TABLET PO SCH (21:00)
[2020-03-02] MEDS: METOPROLOL TARTRATE 25MG TABLET PO SCH ×2 (21:00→23:59)
[2020-03-02] MEDS: SODIUM CHLORIDE 0.45% 1,000 ML IV SCH (22:53)
[2020-03-03] VITALS: BP 128/60
[2020-03-03] MEDS: PIPERACILLIN/TAZOBACTAM 3.375 G in DEXT 5% WATER 100 ML IV SCH ×4 (00:51→23:44)
[2020-03-03] MEDS: INSULIN LISPRO 100 UNITS/ML SUBCUT SCH ×8 (01:24→21:56)
[2020-03-03 04:00] VITALS: BP 139/88
[2020-03-03] MEDS: BLOOD SUGAR DIAGNOSTIC STRIP TEST SCH ×4 (06:30→21:10)
[2020-03-03 08:00] VITALS: BP 160/90
[2020-03-03] MEDS: FAMOTIDINE 20MG TABLET PO SCH ×2 (09:27→20:51)
[2020-03-03] MEDS: ZINC SULFATE 220 MG ( 50 ) CAPSULE PO SCH (09:27)
[2020-03-03] MEDS: CLOPIDOGREL 75MG TABLET PO SCH (09:27)
[2020-03-03] MEDS: ASCORBIC ACID 500 MG TABLET PO SCH ×2 (09:27→20:51)
[2020-03-03] MEDS: DOCUSATE SODIUM 100MG CAPSULE PO SCH ×2 (09:27→18:10)
[2020-03-03] MEDS: METOPROLOL TARTRATE 25MG TABLET PO SCH ×2 (09:27→21:08)
[2020-03-03] MEDS: THIAMINE HCL 100MG TABLET PO SCH (09:27)
[2020-03-03] MEDS: INSULIN GLARGINE UD 100 UNITS/ML SYR SUBCUT SCH ×2 (10:00→21:55)
[2020-03-03 12:00] VITALS: BP 133/73
[2020-03-03] MEDS ORDERED: SODIUM POLYSTYRENE SULFONATE 15 G/60 ML BOT PO SCH (14:00)
[2020-03-03] MEDS: LACTULOSE 20G/30ML UDC PO SCH ×2 (14:00→21:10)
[2020-03-03] MEDS ORDERED: FUROSEMIDE 40MG/4ML VIAL IVP SCH (14:30)
[2020-03-03] MEDS: SODIUM CHLORIDE 0.45% 1,000 ML IV SCH ×2 (15:06→23:43)
[2020-03-03] MEDS: ENOXAPARIN 40MG/0.4ML SYR SUBCUT SCH (15:14)
[2020-03-03 20:00] VITALS: BP 147/83
[2020-03-03] MEDS: ATORVASTATIN CALCIUM 40MG TABLET PO SCH (20:51)
[2020-03-03] MEDS: ACETAMINOPHEN 650MG/20.3ML UDC PO PRN (21:08)
[2020-03-04 04:00] VITALS: BP 127/73
[2020-03-04] MEDS: LACTULOSE 20G/30ML UDC PO SCH ×3 (06:41→23:03)
[2020-03-04] MEDS: PIPERACILLIN/TAZOBACTAM 3.375 G in DEXT 5% WATER 100 ML IV SCH ×4 (06:42→23:05)
[2020-03-04 07:13] LABS: BASOPHILS % 0.6 % (0.0-2.0); EOSINOPHILS % 0.8 % (0.0-5.0); HEMATOCRIT. 44.9 % (42.0-52.0); HEMOGLOBIN. 14.9 g/dL (14.0-18.0); LYMPHOCYTES % 13.8 % (20.0-50.0); MEAN CORPUSCULAR HEMOGLOBIN 27.9 pg (28.0-32.0); MEAN CORPUSCULAR VOLUME 83.9 fL (80.0-94.0); MEAN PLATELET VOLUME 9.3 fl (7.4-10.4); MONOCYTES % 13.1 % (2.0-8.0); NEUTROPHILS % 71.7 % (40.0-76.0); PLATELET 339 x1000/uL (130-400); RED BLOOD CELL COUNT 5.35 mill/uL (4.7-6.1); RED CELL DISTRIBUTION WIDTH 14.4 % (11.6-14.6)
[2020-03-04] MEDS: BLOOD SUGAR DIAGNOSTIC STRIP TEST SCH ×4 (07:15→21:02)
[2020-03-04] MEDS: INSULIN LISPRO 100 UNITS/ML SUBCUT SCH ×7 (07:46→21:00)
[2020-03-04 08:00] VITALS: BP 138/76
[2020-03-04] MEDS: FAMOTIDINE 20MG TABLET PO SCH ×2 (09:00→22:43)
[2020-03-04] MEDS: METOPROLOL TARTRATE 25MG TABLET PO SCH ×2 (10:42→21:02)
[2020-03-04] MEDS: ZINC SULFATE 220 MG ( 50 ) CAPSULE PO SCH (10:42)
[2020-03-04] MEDS: THIAMINE HCL 100MG TABLET PO SCH (10:42)
[2020-03-04] MEDS: ASCORBIC ACID 500 MG TABLET PO SCH ×2 (10:45→21:02)
[2020-03-04] MEDS: DOCUSATE SODIUM 100MG CAPSULE PO SCH ×2 (10:46→17:00)
[2020-03-04] MEDS: CLOPIDOGREL 75MG TABLET PO SCH (10:46)
[2020-03-04] MEDS: INSULIN GLARGINE UD 100 UNITS/ML SYR SUBCUT SCH ×2 (10:53→22:00)
[2020-03-04 12:00] VITALS: BP 154/90
[2020-03-04] MEDS: SODIUM CHLORIDE 0.45% 1,000 ML IV SCH (12:38)
[2020-03-04] MEDS: ENOXAPARIN 40MG/0.4ML SYR SUBCUT SCH (13:08)
[2020-03-04 16:00] VITALS: BP 176/86
[2020-03-04 20:00] VITALS: BP 176/100
[2020-03-04] MEDS: ATORVASTATIN CALCIUM 40MG TABLET PO SCH (21:02)
[2020-03-05] VITALS: BP 150/92
[2020-03-05 04:00] VITALS: BP 169/93
[2020-03-05] MEDS: BLOOD SUGAR DIAGNOSTIC STRIP TEST SCH ×4 (06:06→21:42)
[2020-03-05] MEDS: PIPERACILLIN/TAZOBACTAM 3.375 G in DEXT 5% WATER 100 ML IV SCH ×4 (06:11→22:11)
[2020-03-05] MEDS: INSULIN LISPRO 100 UNITS/ML SUBCUT SCH ×7 (06:12→22:13)
[2020-03-05] MEDS: LACTULOSE 20G/30ML UDC PO SCH ×3 (06:16→21:41)
[2020-03-05 08:00] VITALS: BP 162/98
[2020-03-05] MEDS: ZINC SULFATE 220 MG ( 50 ) CAPSULE PO SCH (09:42)
[2020-03-05] MEDS: FAMOTIDINE 20MG TABLET PO SCH ×2 (09:42→21:41)
[2020-03-05] MEDS: CLOPIDOGREL 75MG TABLET PO SCH (09:44)
[2020-03-05] MEDS: THIAMINE HCL 100MG TABLET PO SCH (09:44)
[2020-03-05] MEDS: DOCUSATE SODIUM 100MG CAPSULE PO SCH ×2 (09:44→17:00)
[2020-03-05 10:14] LABS: CHLORIDE 123 mEq/L (98-107)
[2020-03-05] MEDS: METOPROLOL TARTRATE 25MG TABLET PO SCH ×2 (10:33→21:41)
[2020-03-05] MEDS: CLONIDINE 0.1MG TABLET PO PRN (10:33)
[2020-03-05] MEDS: INSULIN GLARGINE UD 100 UNITS/ML SYR SUBCUT SCH ×2 (10:35→22:12)
[2020-03-05] MEDS: ASCORBIC ACID 500 MG TABLET PO SCH ×2 (10:37→21:41)
[2020-03-05 12:00] VITALS: BP 145/81
[2020-03-05] MEDS ORDERED: POTASSIUM CHLORIDE 20MEQ TABLET SR PO NR (13:15)
[2020-03-05] MEDS: ENOXAPARIN 40MG/0.4ML SYR SUBCUT SCH (13:32)
[2020-03-05 16:00] VITALS: BP 143/91
[2020-03-05 20:00] VITALS: BP 100/50
[2020-03-05] MEDS: AMLODIPINE 5MG TABLET PO SCH (21:41)
[2020-03-05] MEDS: ATORVASTATIN CALCIUM 40MG TABLET PO SCH (21:41)
[2020-03-05] MEDS: DEXTROSE 5% WATER 1,000 ML IV SCH (21:42)
[2020-03-06] VITALS: BP 157/89
[2020-03-06 04:00] VITALS: BP 162/80
[2020-03-06] MEDS: PIPERACILLIN/TAZOBACTAM 3.375 G in DEXT 5% WATER 100 ML IV SCH ×3 (04:45→17:35)
[2020-03-06] MEDS: LACTULOSE 20G/30ML UDC PO SCH ×3 (04:45→22:13)
[2020-03-06] MEDS: BLOOD SUGAR DIAGNOSTIC STRIP TEST SCH ×4 (06:03→21:00)
[2020-03-06] MEDS: INSULIN LISPRO 100 UNITS/ML SUBCUT SCH ×7 (06:10→22:27)
[2020-03-06 08:00] VITALS: BP 172/88
[2020-03-06 08:24] LABS: CHLORIDE 123 mEq/L (98-107)
[2020-03-06] MEDS ORDERED: DOCUSATE SODIUM 250MG CAPSULE PO SCH (09:08)
[2020-03-06] MEDS: THIAMINE HCL 100MG TABLET PO SCH (09:15)
[2020-03-06] MEDS: ASCORBIC ACID 500 MG TABLET PO SCH ×2 (09:15→22:12)
[2020-03-06] MEDS: ZINC SULFATE 220 MG ( 50 ) CAPSULE PO SCH (09:15)
[2020-03-06] MEDS: METOPROLOL TARTRATE 25MG TABLET PO SCH ×2 (09:15→22:13)
[2020-03-06] MEDS: CLOPIDOGREL 75MG TABLET PO SCH (09:15)
[2020-03-06] MEDS: AMLODIPINE 5MG TABLET PO SCH ×2 (09:16→22:13)
[2020-03-06] MEDS: DEXTROSE 5% WATER 1,000 ML IV SCH (09:16)
[2020-03-06] MEDS: DOCUSATE SODIUM 250MG CAPSULE PO SCH ×2 (09:17→17:34)
[2020-03-06] MEDS: INSULIN GLARGINE UD 100 UNITS/ML SYR SUBCUT SCH ×2 (09:20→22:19)
[2020-03-06] MEDS: FAMOTIDINE 20MG TABLET PO SCH ×2 (11:36→22:20)
[2020-03-06 12:00] VITALS: BP 151/83
[2020-03-06] MEDS: ENOXAPARIN 40MG/0.4ML SYR SUBCUT SCH (13:02)
[2020-03-06 16:30] VITALS: BP 177/89
[2020-03-06] MEDS ORDERED: POTASSIUM CHLORIDE 20MEQ TABLET SR PO NR (17:00)
[2020-03-06] MEDS ORDERED: FUROSEMIDE 40MG/4ML VIAL IVP NR (17:00)
[2020-03-06] MEDS: CLONIDINE 0.1MG TABLET PO PRN (17:34)
[2020-03-06 20:00] VITALS: BP 136/84
[2020-03-06] MEDS: HYDRALAZINE HCL 50MG TABLET PO SCH (22:12)
[2020-03-06] MEDS: ATORVASTATIN CALCIUM 40MG TABLET PO SCH (22:13)
[2020-03-07] VITALS: BP 140/75
[2020-03-07] MEDS: PIPERACILLIN/TAZOBACTAM 3.375 G in DEXT 5% WATER 100 ML IV SCH ×3 (00:33→13:32)
[2020-03-07 04:00] VITALS: BP 137/69
[2020-03-07] MEDS: DEXTROSE 5% WATER 1,000 ML IV SCH (04:58)
[2020-03-07] MEDS: LACTULOSE 20G/30ML UDC PO SCH ×3 (05:50→21:57)
[2020-03-07] MEDS: BLOOD SUGAR DIAGNOSTIC STRIP TEST SCH ×4 (06:04→21:32)
[2020-03-07] MEDS: INSULIN LISPRO 100 UNITS/ML SUBCUT SCH ×6 (06:14→22:04)
[2020-03-07 06:39] LABS: BASOPHILS % 0.3 % (0.0-2.0); EOSINOPHILS % 0.7 % (0.0-5.0); HEMATOCRIT. 45.9 % (42.0-52.0); HEMOGLOBIN. 14.8 g/dL (14.0-18.0); LYMPHOCYTES % 14.3 % (20.0-50.0); MEAN CORPUSCULAR HEMOGLOBIN 27.3 pg (28.0-32.0); MEAN CORPUSCULAR VOLUME 84.5 fL (80.0-94.0); MEAN PLATELET VOLUME 9.8 fl (7.4-10.4); MONOCYTES % 8.1 % (2.0-8.0); NEUTROPHILS % 76.6 % (40.0-76.0); PLATELET 360 x1000/uL (130-400); RED BLOOD CELL COUNT 5.43 mill/uL (4.7-6.1); RED CELL DISTRIBUTION WIDTH 14.2 % (11.6-14.6)
[2020-03-07 06:59] LABS: CHLORIDE 123 mEq/L (98-107)
[2020-03-07 08:00] VITALS: BP 154/84
[2020-03-07] MEDS: METOPROLOL TARTRATE 25MG TABLET PO SCH ×2 (09:00→21:57)
[2020-03-07] MEDS: DOCUSATE SODIUM 250MG CAPSULE PO SCH ×2 (09:00→17:00)
[2020-03-07] MEDS: ASCORBIC ACID 500 MG TABLET PO SCH ×2 (09:37→21:57)
[2020-03-07] MEDS: THIAMINE HCL 100MG TABLET PO SCH (09:37)
[2020-03-07] MEDS: ZINC SULFATE 220 MG ( 50 ) CAPSULE PO SCH (09:37)
[2020-03-07] MEDS: AMLODIPINE 5MG TABLET PO SCH ×2 (09:38→21:57)
[2020-03-07] MEDS: HYDRALAZINE HCL 50MG TABLET PO SCH ×2 (09:38→21:57)
[2020-03-07] MEDS: CLOPIDOGREL 75MG TABLET PO SCH (09:38)
[2020-03-07] MEDS: FAMOTIDINE 20MG TABLET PO SCH ×2 (09:39→21:57)
[2020-03-07] MEDS: INSULIN GLARGINE UD 100 UNITS/ML SYR SUBCUT SCH ×2 (09:40→22:04)
[2020-03-07 12:00] VITALS: BP 160/90
[2020-03-07] MEDS: ENOXAPARIN 40MG/0.4ML SYR SUBCUT SCH (13:33)
[2020-03-07 16:00] VITALS: BP 143/92
[2020-03-07 20:00] VITALS: BP 174/99
[2020-03-07] MEDS: ATORVASTATIN CALCIUM 40MG TABLET PO SCH (21:57)
[2020-03-08] VITALS (9 sets, daily range): BP systolic 129–177; BP diastolic 66–97
[2020-03-08] MEDS: DEXTROSE 5% WATER 1,000 ML IV SCH (00:33)
[2020-03-08] MEDS: LACTULOSE 20G/30ML UDC PO SCH ×2 (06:00→13:23)
[2020-03-08] MEDS: BLOOD SUGAR DIAGNOSTIC STRIP TEST SCH ×3 (06:40→16:40)
[2020-03-08] MEDS: INSULIN LISPRO 100 UNITS/ML SUBCUT SCH ×6 (06:45→17:10)
[2020-03-08] MEDS: METOPROLOL TARTRATE 25MG TABLET PO SCH (09:00)
[2020-03-08] MEDS: AMLODIPINE 5MG TABLET PO SCH ×2 (09:00→13:12)
[2020-03-08] MEDS: HYDRALAZINE HCL 50MG TABLET PO SCH (09:00)
[2020-03-08] MEDS: FAMOTIDINE 20MG TABLET PO SCH (09:00)
[2020-03-08] MEDS: CLOPIDOGREL 75MG TABLET PO SCH ×2 (09:00→13:12)
[2020-03-08] MEDS: DOCUSATE SODIUM 250MG CAPSULE PO SCH ×2 (09:00→17:00)
[2020-03-08] MEDS: ASCORBIC ACID 500 MG TABLET PO SCH (09:00)
[2020-03-08] MEDS: ZINC SULFATE 220 MG ( 50 ) CAPSULE PO SCH ×2 (09:00→13:11)
[2020-03-08] MEDS: THIAMINE HCL 100MG TABLET PO SCH ×2 (09:00→13:11)
[2020-03-08] MEDS: HYDRALAZINE 20MG/ML VIAL IV SCH ×2 (11:10→18:00)
[2020-03-08] MEDS: INSULIN GLARGINE UD 100 UNITS/ML SYR SUBCUT SCH (11:14)
[2020-03-08] MEDS: ENOXAPARIN 40MG/0.4ML SYR SUBCUT SCH (13:18)
[2020-03-08] MEDS ORDERED: HYDRALAZINE 20MG/ML VIAL IV PRN (19:04)
[2020-03-08] MEDS ORDERED: HYDRALAZINE HCL 50MG TABLET PO SCH (21:00)
== END 2020-03-08 21:23 | DRG 871 ==
LOC: ER 14:33 → EEVIPCON 18:31 → 7EST 18:31 → EDBEDREQTM 18:34 → EDBEDREQ 18:34 → ENRESERV 20:06 → 7EST 03-07 13:33
PROVIDERS: ADMIT Internal Medicine Nephrology; ATTEND Internal Medicine Nephrology
DX: A41.89 Other specified sepsis (principal); U07.1 COVID-19; E43 Unspecified severe protein-calorie malnutrition; G93.41 Metabolic encephalopathy; J12.89 Other viral pneumonia; J96.01 Acute respiratory failure with hypoxia; N17.0 Acute kidney failure with tubular necrosis; E87.1 Hypo-osmolality and hyponatremia; I69.354 Hemiplegia and hemiparesis following cerebral infarction affecting left non-dominant side; E87.0 Hyperosmolality and hypernatremia; D72.810 Lymphocytopenia; E11.9 Type 2 diabetes mellitus without complications; E78.5 Hyperlipidemia, unspecified; I10 Essential (primary) hypertension; Z66 Do not resuscitate; R13.10 Dysphagia, unspecified; E86.1 Hypovolemia; E87.70 Fluid overload, unspecified; E11.42 Type 2 diabetes mellitus with diabetic polyneuropathy; R94.31 Abnormal electrocardiogram [ECG] [EKG]; Z68.21 Body mass index [BMI] 21.0-21.9, adult; Z79.899 Other long term (current) drug therapy; Z79.82 Long term (current) use of aspirin
CPT/HCPCS: 36415; 36600; 71045; 80048; 80053; 81003; 82140; 82375; 82728; 82805; 82962; 83036; 83605; 83615; 83735; 83880; 84100; 84145; 84484; 85025; 85379; 85651; 86140; 86141; 87804; 93005; 96365; 99285; J0360; J0456; J0696; J1650; J1815; J1940; J2543; J3370; J7030; J7060; J7070

== ENCOUNTER 2020-07-28 18:27 | Emergency (ER) | payer MEDICARE, MEDICAID ==
[~2020-07-28] VITALS: Ht 177.8 cm; Wt 79.0 kg
[~2020-07-28 18:27] MED LIST changes: +AMLO5TAB88 PO; +ASPI-1497 PO; +HYDR-3281 PO; +TOPUD PO
[2020-07-28 19:59] LABS: BASOPHILS % 0.7 % (0.0-2.0); CHLORIDE 102 mEq/L (98-107); EOSINOPHILS % 4.5 % (0.0-5.0); HEMATOCRIT. 44.3 % (42.0-52.0); HEMOGLOBIN. 14.6 g/dL (14.0-18.0); LYMPHOCYTES % 30.8 % (20.0-50.0); MEAN CORPUSCULAR HEMOGLOBIN 27.8 pg (28.0-32.0); MEAN CORPUSCULAR VOLUME 84.2 fL (80.0-94.0); MEAN PLATELET VOLUME 7.7 fl (7.4-10.4); MONOCYTES % 9.9 % (2.0-8.0); NEUTROPHILS % 54.1 % (40.0-76.0); PLATELET 332 x1000/uL (130-400); RED BLOOD CELL COUNT 5.27 mill/uL (4.7-6.1)
[2020-07-28 20:03] LABS: INR 1.1; PROTHROMBIN TIME 11.4 sec (9.6-11.0)
[2020-07-28 23:09] LABS: CLARITY URINE CLOUDY (CLEAR); COLOR URINE YELLOW (YELLOW); KETONES URINE NEGATIVE (NEGATIVE); LEUKOCYTE ESTERASE URINE 3+ (NEGATIVE); NITRITE URINE POSITIVE (NEGATIVE); OCCULT BLOOD URINE 1+ (NEGATIVE); PH URINE 5.5 (4.5-8.0); PROTEIN URINE 2+ (NEGATIVE); UROBILINOGEN URINE 0.2 E.U./dL (0.2-1.0)
[2020-07-28] MEDS ORDERED: CEFTRIAXONE SODIUM 1 G/VIAL IM ONE (23:45)
[2020-07-28] MEDS ORDERED: KETOROLAC 15MG/ML VIAL IM ONE (23:45)
[2020-07-29 00:10] VITALS: BP 154/75
== END 2020-07-29 01:11 ==
LOC: ER 18:27
DX: N39.0 Urinary tract infection, site not specified (principal); R41.0 Disorientation, unspecified; I69.354 Hemiplegia and hemiparesis following cerebral infarction affecting left non-dominant side; E11.9 Type 2 diabetes mellitus without complications; N28.9 Disorder of kidney and ureter, unspecified; Z79.4 Long term (current) use of insulin; Z88.6 Allergy status to analgesic agent
CPT/HCPCS: 36415; 71045; 80053; 81003; 83605; 84484; 85025; 85610; 87077; 87086; 87186; 93005; 96372; 99284; J0696; J1885

== ENCOUNTER 2022-02-12 07:41 | Inpatient (IN) | payer MEDICARE, MEDICAID ==
[~2022-02-12] VITALS: Ht 180.3 cm; Wt 69.4 kg
[~2022-02-12 07:41] MED LIST changes: +ASCO500C18 PO; +CLOP-31 PO; -CLOP75TA4 PO; -GABA-531 PO; +GABA-532 PO; -HYDR-3281 PO; +HYDR-4346 PO; +LISI40TA13 PO; -LISI40TA4 PO
[2022-02-12 08:35] LABS: CHLORIDE 112 mEq/L (98-107)
[2022-02-12 08:36] LABS: BASOPHILS % 0.7 % (0.0-2.0); EOSINOPHILS % 3.9 % (0.0-5.0); LYMPHOCYTES % 23.9 % (20.0-50.0); MEAN CORPUSCULAR HEMOGLOBIN 21.2 pg (28.0-32.0); MEAN CORPUSCULAR VOLUME 70.9 fL (80.0-94.0); MEAN PLATELET VOLUME 7.3 fl (7.4-10.4); MONOCYTES % 13.2 % (2.0-8.0); NEUTROPHILS % 58.3 % (40.0-76.0); PLATELET 394 x1000/uL (130-400); RED CELL DISTRIBUTION WIDTH 20.4 % (11.6-14.6)
[2022-02-12 08:39] LABS: ETHANOL BLOOD < 10 mg/dL
[2022-02-12 08:44] LABS: TOTAL IRON BINDING CAPACITY 392 ug/dL (250-450)
[2022-02-12 08:47] LABS: HEMOGLOBIN. 5.1 g/dL (14.0-18.0)
[2022-02-12 11:04] LABS: PROTHROMBIN TIME 10.9 sec (9.6-11.0)
[2022-02-12] MEDS ORDERED: DEXTROSE 50% WATER 50ML SYRINGE IV PRN (11:30)
[2022-02-12] MEDS: PANTOPRAZOLE SODIUM 40 MG/VIAL IV SCH ×2 (12:18→21:23)
[2022-02-12] MEDS: BLOOD SUGAR DIAGNOSTIC STRIP TEST SCH ×3 (13:37→21:24)
[2022-02-12] MEDS: IRON SUCROSE COMPLEX 100 MG/5 ML ML IV SCH (14:01)
[2022-02-12] MEDS: INSULIN LISPRO 100 UNITS/ML SUBCUT SCH ×3 (14:02→21:23)
[2022-02-12] MEDS: AMLODIPINE 10MG TABLET PO SCH (14:46)
[2022-02-12 15:34] LABS: HEMATOCRIT 26.4 % (42.0-52.0); HEMOGLOBIN 8.4 g/dL (14.0-18.0)
[2022-02-12] MEDS ORDERED: THIA50TA12 MT (15:40)
[2022-02-12] MEDS ORDERED: HYDR-4001 MT (15:40)
[2022-02-12] MEDS ORDERED: LACT10SO7 MT (15:40)
[2022-02-12] MEDS ORDERED: POLY15DR31 EACHEYE (15:42)
[2022-02-12 16:00] VITALS: BP 115/73
[2022-02-12 16:28] VITALS: BP 166/71
[2022-02-12] MEDS: LOSARTAN POTASSIUM 100 MG TABLET PO SCH (17:40)
[2022-02-12 20:00] VITALS: BP 135/76
[2022-02-13] VITALS: BP 147/70
[2022-02-13 04:00] VITALS: BP 133/68
[2022-02-13] MEDS: BLOOD SUGAR DIAGNOSTIC STRIP TEST SCH ×4 (06:15→20:55)
[2022-02-13 07:36] LABS: BASOPHILS % 0.6 % (0.0-2.0); EOSINOPHILS % 4.8 % (0.0-5.0); HEMATOCRIT. 23.8 % (42.0-52.0); HEMOGLOBIN. 7.6 g/dL (14.0-18.0); LYMPHOCYTES % 16.5 % (20.0-50.0); MEAN CORPUSCULAR HEMOGLOBIN 23.6 pg (28.0-32.0); MEAN CORPUSCULAR VOLUME 74.1 fL (80.0-94.0); MEAN PLATELET VOLUME 7.7 fl (7.4-10.4); MONOCYTES % 10.4 % (2.0-8.0); NEUTROPHILS % 67.7 % (40.0-76.0); PLATELET 337 x1000/uL (130-400); RED BLOOD CELL COUNT 3.21 mill/uL (4.7-6.1); RED CELL DISTRIBUTION WIDTH 20.9 % (11.6-14.6)
[2022-02-13 07:45] LABS: CHLORIDE 114 mEq/L (98-107)
[2022-02-13 08:00] VITALS: BP 115/76
[2022-02-13] MEDS: PANTOPRAZOLE SODIUM 40 MG/VIAL IV SCH ×2 (09:00→20:38)
[2022-02-13] MEDS: IRON SUCROSE COMPLEX 100 MG/5 ML ML IV SCH (09:00)
[2022-02-13] MEDS: LOSARTAN POTASSIUM 100 MG TABLET PO SCH (09:33)
[2022-02-13] MEDS: AMLODIPINE 10MG TABLET PO SCH (09:34)
[2022-02-13] MEDS: INSULIN LISPRO 100 UNITS/ML SUBCUT SCH ×4 (09:37→20:58)
[2022-02-13 12:00] VITALS: BP 137/67
[2022-02-13] MEDS ORDERED: POTASSIUM CHLORIDE 20MEQ/PACKET PO NR (14:30)
[2022-02-13] MEDS: BISACODYL 5MG TABLET PO SCH ×2 (15:52→20:34)
[2022-02-13] MEDS: SORBITOL 70% SOLN 30ML PO SCH ×2 (15:52→20:33)
[2022-02-13 16:00] VITALS: BP 156/76
[2022-02-13] MEDS: METOCLOPRAMIDE HCL 10MG/2ML VIAL IV SCH ×2 (16:03→20:38)
[2022-02-13 20:24] VITALS: BP 143/61
[2022-02-14] MEDS: SORBITOL 70% SOLN 30ML PO SCH ×5 (00:13→21:44)
[2022-02-14] MEDS: BISACODYL 5MG TABLET PO SCH ×4 (00:13→17:56)
[2022-02-14] MEDS: METOCLOPRAMIDE HCL 10MG/2ML VIAL IV SCH ×4 (00:15→17:52)
[2022-02-14 00:26] VITALS: BP 132/74
[2022-02-14 04:00] VITALS: BP 125/69
[2022-02-14] MEDS ORDERED: METOCLOPRAMIDE HCL 10MG/2ML VIAL IV NR (05:00)
[2022-02-14] MEDS ORDERED: BISACODYL 5MG TABLET PO NR (05:15)
[2022-02-14] MEDS: BLOOD SUGAR DIAGNOSTIC STRIP TEST SCH ×4 (05:53→21:42)
[2022-02-14] MEDS: INSULIN LISPRO 100 UNITS/ML SUBCUT SCH ×4 (05:55→21:43)
[2022-02-14 07:08] LABS: BASOPHILS % 0.4 % (0.0-2.0); EOSINOPHILS % 2.9 % (0.0-5.0); HEMATOCRIT. 28.4 % (42.0-52.0); HEMOGLOBIN. 8.7 g/dL (14.0-18.0); MEAN CORPUSCULAR HEMOGLOBIN 23.4 pg (28.0-32.0); MEAN CORPUSCULAR VOLUME 76.3 fL (80.0-94.0); NEUTROPHILS % 80.7 % (40.0-76.0); PLATELET 388 x1000/uL (130-400); RED BLOOD CELL COUNT 3.73 mill/uL (4.7-6.1); RED CELL DISTRIBUTION WIDTH 21.4 % (11.6-14.6)
[2022-02-14 07:10] LABS: CHLORIDE 112 mEq/L (98-107)
[2022-02-14] MEDS: LOSARTAN POTASSIUM 100 MG TABLET PO SCH (09:00)
[2022-02-14] MEDS: AMLODIPINE 10MG TABLET PO SCH (09:00)
[2022-02-14] MEDS: PANTOPRAZOLE SODIUM 40 MG/VIAL IV SCH ×2 (09:38→21:44)
[2022-02-14] MEDS: IRON SUCROSE COMPLEX 100 MG/5 ML ML IV SCH (09:39)
[2022-02-14] MEDS ORDERED: SORBITOL 70% SOLN 30ML PO SCH ×2 (11:30→14:00)
[2022-02-14 12:00] VITALS: BP 115/63
[2022-02-14] MEDS ORDERED: CEFTRIAXONE 1 G PREMIX 50 ML IV SCH (13:45)
[2022-02-14 16:00] VITALS: BP_SYST 124; BP_SYST 126; BP_SYST 171; BP_DIAS 67; BP_DIAS 72
[2022-02-14] MEDS: CEFTRIAXONE 1,000 MG in DEXTROSE 5% WATER 50 ML IV SCH (16:16)
[2022-02-14 17:01] VITALS: BP 171/72
[2022-02-14 20:00] VITALS: BP 121/67
[2022-02-15] VITALS: BP 116/70
[2022-02-15] MEDS: SORBITOL 70% SOLN 30ML PO SCH ×3 (01:35→10:08)
[2022-02-15 04:00] VITALS: BP 124/72
[2022-02-15 06:25] LABS: CLARITY URINE CLOUDY (CLEAR); COLOR URINE DARK YELLOW (YELLOW); KETONES URINE NEGATIVE (NEGATIVE); LEUKOCYTE ESTERASE URINE NEGATIVE (NEGATIVE); NITRITE URINE NEGATIVE (NEGATIVE); OCCULT BLOOD URINE NEGATIVE (NEGATIVE); PROTEIN URINE NEGATIVE (NEGATIVE); UROBILINOGEN URINE 0.2 E.U./dL (0.2-1.0)
[2022-02-15] MEDS: METOCLOPRAMIDE HCL 10MG/2ML VIAL IV SCH ×2 (06:27)
[2022-02-15] MEDS: BISACODYL 5MG TABLET PO SCH ×2 (06:27)
[2022-02-15] MEDS: BLOOD SUGAR DIAGNOSTIC STRIP TEST SCH ×4 (06:38→21:38)
[2022-02-15] MEDS: INSULIN LISPRO 100 UNITS/ML SUBCUT SCH ×4 (06:40→21:38)
[2022-02-15 06:56] LABS: HEMATOCRIT. 30.1 % (42.0-52.0); HEMOGLOBIN. 9.2 g/dL (14.0-18.0); MEAN CORPUSCULAR HEMOGLOBIN 23.1 pg (28.0-32.0); MEAN CORPUSCULAR VOLUME 75.6 fL (80.0-94.0); PLATELET 415 x1000/uL (130-400); RED BLOOD CELL COUNT 3.98 mill/uL (4.7-6.1); RED CELL DISTRIBUTION WIDTH 21.7 % (11.6-14.6)
[2022-02-15 07:04] LABS: INR 1.1; PROTHROMBIN TIME 11.5 sec (9.6-11.0)
[2022-02-15 08:00] VITALS: BP 118/71
[2022-02-15] MEDS: LOSARTAN POTASSIUM 50 MG TABLET PO SCH (09:00)
[2022-02-15] MEDS: AMLODIPINE 10MG TABLET PO SCH (09:00)
[2022-02-15 09:55] LABS: PLATELET ESTIMATE SLIGHTLY INCREASED
[2022-02-15] MEDS: SODIUM CHLORIDE 0.45% 1,000 ML IV SCH (10:04)
[2022-02-15] MEDS: PANTOPRAZOLE SODIUM 40 MG/VIAL IV SCH ×2 (10:05→21:37)
[2022-02-15 12:00] VITALS: BP 117/67
[2022-02-15] MEDS ORDERED: PROPOFOL 200MG/20ML VIAL IV ONE (13:06)
[2022-02-15] MEDS ORDERED: MIDAZOLAM HCL 2 MG/2 ML VIAL ONE (13:09)
[2022-02-15 16:00] VITALS: BP 155/63
[2022-02-15] MEDS: CEFTRIAXONE 1,000 MG in DEXTROSE 5% WATER 50 ML IV SCH (17:03)
[2022-02-15 20:00] VITALS: BP 123/72
[2022-02-16] VITALS: BP 114/69
[2022-02-16 04:00] VITALS: BP 140/72
[2022-02-16] MEDS: SODIUM CHLORIDE 0.45% 1,000 ML IV SCH (04:40)
[2022-02-16] MEDS: BLOOD SUGAR DIAGNOSTIC STRIP TEST SCH ×4 (06:03→21:00)
[2022-02-16] MEDS: INSULIN LISPRO 100 UNITS/ML SUBCUT SCH ×4 (06:19→22:15)
[2022-02-16 08:00] VITALS: BP 130/84
[2022-02-16 08:25] LABS: BASOPHILS % 0.2 % (0.0-2.0); EOSINOPHILS % 2.3 % (0.0-5.0); HEMATOCRIT. 28.7 % (42.0-52.0); HEMOGLOBIN. 8.8 g/dL (14.0-18.0); LYMPHOCYTES % 8.2 % (20.0-50.0); MEAN CORPUSCULAR HEMOGLOBIN 23.7 pg (28.0-32.0); MEAN CORPUSCULAR VOLUME 77.1 fL (80.0-94.0); MEAN PLATELET VOLUME 8.2 fl (7.4-10.4); MONOCYTES % 7.5 % (2.0-8.0); NEUTROPHILS % 81.8 % (40.0-76.0); PLATELET 348 x1000/uL (130-400); RED BLOOD CELL COUNT 3.72 mill/uL (4.7-6.1); RED CELL DISTRIBUTION WIDTH 22.9 % (11.6-14.6)
[2022-02-16] MEDS: LOSARTAN POTASSIUM 50 MG TABLET PO SCH (08:43)
[2022-02-16] MEDS: AMLODIPINE 10MG TABLET PO SCH (08:43)
[2022-02-16] MEDS: PANTOPRAZOLE SODIUM 40 MG/VIAL IV SCH ×2 (09:06→22:13)
[2022-02-16 12:00] VITALS: BP 132/67
[2022-02-16] MEDS: CEFTRIAXONE 1,000 MG in DEXTROSE 5% WATER 50 ML IV SCH (15:16)
[2022-02-16 16:00] VITALS: BP 119/65
[2022-02-16] MEDS ORDERED: SORBITOL 70% SOLN 30ML PO NR (19:00)
[2022-02-16] MEDS ORDERED: POTASSIUM CHLORIDE 20MEQ/PACKET PO NR (19:00)
[2022-02-16 20:00] VITALS: BP 145/89
[2022-02-17] VITALS: BP 129/63
[2022-02-17] MEDS: SODIUM CHLORIDE 0.45% 1,000 ML IV SCH ×2 (02:03→21:46)
[2022-02-17 04:00] VITALS: BP 103/61
[2022-02-17 06:06] LABS: BASOPHILS % 0.8 % (0.0-2.0); EOSINOPHILS % 3.3 % (0.0-5.0); HEMATOCRIT. 31.5 % (42.0-52.0); HEMOGLOBIN. 9.6 g/dL (14.0-18.0); LYMPHOCYTES % 9.1 % (20.0-50.0); MEAN CORPUSCULAR HEMOGLOBIN 23.5 pg (28.0-32.0); MEAN CORPUSCULAR VOLUME 77.4 fL (80.0-94.0); MEAN PLATELET VOLUME 8.5 fl (7.4-10.4); MONOCYTES % 9.7 % (2.0-8.0); NEUTROPHILS % 77.1 % (40.0-76.0); PLATELET 374 x1000/uL (130-400); RED BLOOD CELL COUNT 4.07 mill/uL (4.7-6.1); RED CELL DISTRIBUTION WIDTH 24.2 % (11.6-14.6)
[2022-02-17] MEDS: BLOOD SUGAR DIAGNOSTIC STRIP TEST SCH ×4 (06:51→21:45)
[2022-02-17] MEDS: INSULIN LISPRO 100 UNITS/ML SUBCUT SCH ×5 (06:52→22:29)
[2022-02-17 07:10] LABS: INR 1.1; PROTHROMBIN TIME 11.5 sec (9.6-11.0)
[2022-02-17 08:06] VITALS: BP 134/67
[2022-02-17] MEDS: AMLODIPINE 10MG TABLET PO SCH (08:27)
[2022-02-17] MEDS: PANTOPRAZOLE SODIUM 40 MG/VIAL IV SCH ×2 (08:27→21:45)
[2022-02-17] MEDS: LOSARTAN POTASSIUM 50 MG TABLET PO SCH (08:27)
[2022-02-17 11:39] VITALS: BP 130/63
[2022-02-17] MEDS ORDERED: METOCLOPRAMIDE HCL 10MG/2ML VIAL IV SCH (12:00)
[2022-02-17] MEDS ORDERED: POTASSIUM CHLORIDE 20MEQ/PACKET NG NR (12:02)
[2022-02-17] MEDS: SORBITOL 70% SOLN 30ML NG SCH ×2 (12:09→17:30)
[2022-02-17] MEDS: METOCLOPRAMIDE HCL 10MG/2ML VIAL IV SCH ×2 (12:23→17:20)
[2022-02-17] MEDS: CEFTRIAXONE 1,000 MG in DEXTROSE 5% WATER 50 ML IV SCH (14:18)
[2022-02-17 15:48] VITALS: BP 104/59
[2022-02-17 20:03] VITALS: BP 130/74
[2022-02-17] MEDS ORDERED: INSULIN GLARGINE 100 UNITS/ML SUBCUT NR (22:00)
[2022-02-18] VITALS: BP 128/69
[2022-02-18] MEDS: SORBITOL 70% SOLN 30ML NG SCH (00:30)
[2022-02-18] MEDS: METOCLOPRAMIDE HCL 10MG/2ML VIAL IV SCH (01:31)
[2022-02-18] MEDS: BLOOD SUGAR DIAGNOSTIC STRIP TEST SCH ×4 (05:18→21:00)
[2022-02-18 05:57] LABS: BASOPHILS % 0.5 % (0.0-2.0); EOSINOPHILS % 0.4 % (0.0-5.0); HEMATOCRIT. 36.4 % (42.0-52.0); HEMOGLOBIN. 10.9 g/dL (14.0-18.0); LYMPHOCYTES % 7.4 % (20.0-50.0); MEAN CORPUSCULAR HEMOGLOBIN 23.6 pg (28.0-32.0); MEAN CORPUSCULAR VOLUME 78.7 fL (80.0-94.0); MEAN PLATELET VOLUME 8.4 fl (7.4-10.4); MONOCYTES % 9.2 % (2.0-8.0); NEUTROPHILS % 82.5 % (40.0-76.0); PLATELET 446 x1000/uL (130-400); RED BLOOD CELL COUNT 4.62 mill/uL (4.7-6.1); RED CELL DISTRIBUTION WIDTH 24.1 % (11.6-14.6)
[2022-02-18 06:05] LABS: INR 1.1; PROTHROMBIN TIME 11.4 sec (9.6-11.0)
[2022-02-18 08:00] VITALS: BP 127/72
[2022-02-18] MEDS: LOSARTAN POTASSIUM 50 MG TABLET PO SCH (09:00)
[2022-02-18] MEDS: AMLODIPINE 10MG TABLET PO SCH (09:00)
[2022-02-18] MEDS: PANTOPRAZOLE SODIUM 40 MG/VIAL IV SCH ×2 (09:37→21:00)
[2022-02-18] MEDS ORDERED: METOPROLOL TARTRATE 5MG/5ML VIAL IV SCH (09:45)
[2022-02-18 12:00] VITALS: BP 111/73
[2022-02-18] MEDS: INSULIN LISPRO 100 UNITS/ML SUBCUT SCH ×4 (12:10→21:00)
[2022-02-18] MEDS: DEXTROSE 5% WATER 1,000 ML IV SCH (12:34)
[2022-02-18] MEDS ORDERED: METOPROLOL TARTRATE 5MG/5ML VIAL IV PRN (13:30)
[2022-02-18] MEDS ORDERED: DIGOXIN 500MCG/2ML AMP IV NR (14:30)
[2022-02-18] MEDS ORDERED: SODIUM CHLORIDE 0.45% 500 ML IV ONE (14:45)
[2022-02-18] MEDS: CEFTRIAXONE 1,000 MG in DEXTROSE 5% WATER 50 ML IV SCH (15:24)
[2022-02-18 16:00] VITALS: BP 115/74
[2022-02-18] MEDS ORDERED: INSULIN GLARGINE 100 UNITS/ML SUBCUT NR (16:00)
[2022-02-18 20:00] VITALS: BP 117/99
[2022-02-18] MEDS ORDERED: INSULIN GLARGINE 100 UNITS/ML SUBCUT SCH (22:00)
[2022-02-18] MEDS: INSULIN GLARGINE 100 UNITS/ML SUBCUT SCH (22:47)
[2022-02-19] VITALS: BP 103/63
[2022-02-19] MEDS: DEXTROSE 5% WATER 1,000 ML IV SCH ×2 (01:03→14:24)
[2022-02-19 04:00] VITALS: BP 123/63
[2022-02-19] MEDS: BLOOD SUGAR DIAGNOSTIC STRIP TEST SCH ×4 (06:21→21:00)
[2022-02-19] MEDS: INSULIN LISPRO 100 UNITS/ML SUBCUT SCH ×4 (06:22→21:44)
[2022-02-19 08:19] VITALS: BP 127/67
[2022-02-19] MEDS: AMLODIPINE 10MG TABLET PO SCH (09:34)
[2022-02-19] MEDS: PANTOPRAZOLE SODIUM 40 MG/VIAL IV SCH ×2 (09:34→21:34)
[2022-02-19] MEDS: LOSARTAN POTASSIUM 50 MG TABLET PO SCH (09:34)
[2022-02-19] MEDS: INSULIN GLARGINE 100 UNITS/ML SUBCUT SCH ×2 (09:35→21:44)
[2022-02-19 12:08] VITALS: BP 138/70
[2022-02-19 12:25] LABS: BASOPHILS % 1.1 % (0.0-2.0); EOSINOPHILS % 3.8 % (0.0-5.0); HEMATOCRIT. 30.5 % (42.0-52.0); HEMOGLOBIN. 9.1 g/dL (14.0-18.0); LYMPHOCYTES % 13.5 % (20.0-50.0); MEAN CORPUSCULAR HEMOGLOBIN 23.4 pg (28.0-32.0); MEAN CORPUSCULAR VOLUME 78.2 fL (80.0-94.0); MEAN PLATELET VOLUME 8.1 fl (7.4-10.4); NEUTROPHILS % 74.6 % (40.0-76.0); PLATELET 337 x1000/uL (130-400); RED CELL DISTRIBUTION WIDTH 24.5 % (11.6-14.6)
[2022-02-19 12:33] LABS: INR 1.1; PROTHROMBIN TIME 11.7 sec (9.6-11.0)
[2022-02-19] MEDS ORDERED: POTASSIUM CHLORIDE INJ 40 MEQ in DEXT 5% WATER 250 ML IV ONE (13:30)
[2022-02-19] MEDS ORDERED: SORBITOL 70% SOLN 30ML NG NR ×2 (14:00→19:30)
[2022-02-19] MEDS: CEFTRIAXONE 1,000 MG in DEXTROSE 5% WATER 50 ML IV SCH (14:24)
[2022-02-19] MEDS: KCL 20MEQ/100ML PREMIX 100 ML IV SCH ×2 (15:09→17:23)
[2022-02-19 16:02] VITALS: BP 106/56
[2022-02-19 20:00] VITALS: BP 128/74
[2022-02-20] VITALS: BP 121/78
[2022-02-20] MEDS: DEXTROSE 5% WATER 1,000 ML IV SCH ×2 (03:24→17:38)
[2022-02-20 04:00] VITALS: BP 104/62
[2022-02-20] MEDS: BLOOD SUGAR DIAGNOSTIC STRIP TEST SCH ×4 (06:02→20:50)
[2022-02-20] MEDS: INSULIN LISPRO 100 UNITS/ML SUBCUT SCH ×4 (06:21→20:49)
[2022-02-20 08:00] VITALS: BP 110/69
[2022-02-20] MEDS: PANTOPRAZOLE SODIUM 40 MG/VIAL IV SCH ×2 (08:21→20:48)
[2022-02-20 08:45] LABS: BASOPHILS % 0.9 % (0.0-2.0); EOSINOPHILS % 3.1 % (0.0-5.0); HEMATOCRIT. 38.7 % (42.0-52.0); LYMPHOCYTES % 11.8 % (20.0-50.0); MEAN CORPUSCULAR HEMOGLOBIN 23.7 pg (28.0-32.0); MEAN CORPUSCULAR VOLUME 83.9 fL (80.0-94.0); MEAN PLATELET VOLUME 8.3 fl (7.4-10.4); MONOCYTES % 9.3 % (2.0-8.0); NEUTROPHILS % 74.9 % (40.0-76.0); PLATELET 393 x1000/uL (130-400); RED BLOOD CELL COUNT 4.61 mill/uL (4.7-6.1); RED CELL DISTRIBUTION WIDTH 25.6 % (11.6-14.6)
[2022-02-20 08:52] LABS: INR 1.1; PROTHROMBIN TIME 11.7 sec (9.6-11.0)
[2022-02-20] MEDS: LOSARTAN POTASSIUM 50 MG TABLET PO SCH (09:00)
[2022-02-20] MEDS: AMLODIPINE 10MG TABLET PO SCH (09:00)
[2022-02-20] MEDS: INSULIN GLARGINE 100 UNITS/ML SUBCUT SCH ×2 (10:42→20:50)
[2022-02-20 12:00] VITALS: BP 116/68
[2022-02-20 16:00] VITALS: BP 134/74
[2022-02-20 20:00] VITALS: BP 148/70
[2022-02-21] VITALS: BP 133/67
[2022-02-21] MEDS: DEXTROSE 5% WATER 1,000 ML IV SCH (05:55)
[2022-02-21] MEDS: INSULIN LISPRO 100 UNITS/ML SUBCUT SCH ×3 (05:55→17:49)
[2022-02-21] MEDS: BLOOD SUGAR DIAGNOSTIC STRIP TEST SCH ×3 (05:55→17:01)
[2022-02-21 06:31] LABS: BASOPHILS % 0.5 % (0.0-2.0); EOSINOPHILS % 4.6 % (0.0-5.0); HEMATOCRIT. 34.7 % (42.0-52.0); HEMOGLOBIN. 10.3 g/dL (14.0-18.0); LYMPHOCYTES % 11.5 % (20.0-50.0); MEAN CORPUSCULAR HEMOGLOBIN 23.6 pg (28.0-32.0); MEAN CORPUSCULAR VOLUME 79.1 fL (80.0-94.0); MEAN PLATELET VOLUME 8.5 fl (7.4-10.4); MONOCYTES % 6.9 % (2.0-8.0); NEUTROPHILS % 76.5 % (40.0-76.0); PLATELET 375 x1000/uL (130-400); RED BLOOD CELL COUNT 4.39 mill/uL (4.7-6.1)
[2022-02-21 07:39] VITALS: BP 121/67
[2022-02-21] MEDS: AMLODIPINE 10MG TABLET PO SCH (08:06)
[2022-02-21] MEDS: PANTOPRAZOLE SODIUM 40 MG/VIAL IV SCH (08:06)
[2022-02-21] MEDS: LOSARTAN POTASSIUM 50 MG TABLET PO SCH (08:07)
[2022-02-21] MEDS: INSULIN GLARGINE 100 UNITS/ML SUBCUT SCH (09:57)
[2022-02-21] MEDS ORDERED: METOCLOPRAMIDE HCL 10MG/2ML VIAL IV SCH (10:30)
[2022-02-21] MEDS ORDERED: BISACODYL 5MG TABLET PO SCH (10:30)
[2022-02-21] MEDS ORDERED: SORBITOL 70% SOLN 30ML NG SCH (11:00)
[2022-02-21 11:34] VITALS: BP 117/62
[2022-02-21 15:44] VITALS: BP 103/66
[2022-02-21 16:08] VITALS: BP 103/66
== END 2022-02-21 19:55 | DRG 871 ==
LOC: ER 07:57 → 7EST 10:38 → ENRESERV 11:25
PROVIDERS: ADMIT Internal Medicine Nephrology; ATTEND Internal Medicine Nephrology
PROC: 30233N1 Transfusion of Nonautologous Red Blood Cells into Peripheral Vein, Percutaneous Approach (ICD-10-PCS; principal; 2022-02-12)
PROC: 0DB78ZX Excision of Stomach, Pylorus, Via Natural or Artificial Opening Endoscopic, Diagnostic (ICD-10-PCS; 2022-02-15)
PROC: 0DJD8ZZ Inspection of Lower Intestinal Tract, Via Natural or Artificial Opening Endoscopic (ICD-10-PCS; 2022-02-15)
DX: A41.9 Sepsis, unspecified organism (principal); K29.71 Gastritis, unspecified, with bleeding; E44.0 Moderate protein-calorie malnutrition; E87.0 Hyperosmolality and hypernatremia; N17.9 Acute kidney failure, unspecified; D50.9 Iron deficiency anemia, unspecified; E11.9 Type 2 diabetes mellitus without complications; I10 Essential (primary) hypertension; E78.00 Pure hypercholesterolemia, unspecified; E87.8 Other disorders of electrolyte and fluid balance, not elsewhere classified; Z20.822 Contact with and (suspected) exposure to COVID-19; E78.5 Hyperlipidemia, unspecified; R13.10 Dysphagia, unspecified; Z79.82 Long term (current) use of aspirin; Z79.899 Other long term (current) drug therapy; Z79.1 Long term (current) use of non-steroidal anti-inflammatories (NSAID); Z79.4 Long term (current) use of insulin; Z86.73 Personal history of transient ischemic attack (TIA), and cerebral infarction without residual deficits; Z82.49 Family history of ischemic heart disease and other diseases of the circulatory system; Z83.3 Family history of diabetes mellitus; Z68.21 Body mass index [BMI] 21.0-21.9, adult; Z79.02 Long term (current) use of antithrombotics/antiplatelets; Z87.891 Personal history of nicotine dependence
CPT/HCPCS: 36415; 71045; 73130; 80048; 80053; 80320; 81003; 82270; 82607; 82728; 82746; 82962; 83540; 83550; 83605; 84132; 84145; 85014; 85018; 85025; 85044; 86850; 86900; 86920; 87426; 88305; 88312; 88313; 92610; 93005; 93970; 99291; C9113; J0696; J1160; J1815; J2250; J2704; J2765; J3480; J3490; J7060; J7070; P9016; G0480